=== PATIENT | female | born 1990 | race Two or more races ===

== ENCOUNTER 2019-04-09 14:06 | Emergency (ER) | payer OTHER ==
--- NOTE | 2019-04-09 14:26 | PDOC ---
Rapid Medical Evaluation Chief Complaint: Pain, Acute Time Seen by Provider: 04/09/19 14:24 Medical Evaluation: Allergies Allergy/AdvReac Type Severity Reaction Status Date / Time No Known Allergies Allergy Verified 04/09/19 14:24 04/09/19 14:24 Pt c/o: sudden onset on rt suprapubic pressure which began 1 hour, 6 weeks preg , no u/s yet, no bleeding, no injury Pt on brief exam: + suprapubic tenderness, no rlq tenderness, vss Pt ordered for: t/v preg u/s,labs and urine, tylenol pt to proceed to the ED 04/09/19 14:28 Discharge Disposition - Diagnosis Abdominal pain during in first trimester - Discharge Dispostion Disposition: HOME - Referrals Referrals: [facility] [Provider Group] [facility] [place] [Provider Group] - Patient Instructions Printed Discharge Instructions: DI for -- Discomforts and Remedies Additional Instructions: Discharge Instructions: You were seen in the emergency department for abdominal pain during . Your blood tests did not show any abnormalities, and your symptoms improved with medications. You had an ultrasound showing a normal . Home Care and Follow Up: - Minor pain in early is common and is often not a cause for concern. - You may take acetaminophen (Tylenol) 650-1000mg every 6 hours as needed. - Try using a heating pad for continued pain - You may have nausea during your . Eat small, frequent meals throughout the day. Consider keeping crackers or a small snack near your bed to eat as soon as you get up in the morning. If this does not help, a combination of vitamin B6 and doxylamine (brand name Unisom) is very effective for nausea/ vomiting in . These are available over the counter. You may take 25mg vitamin B6 daily along with of a Unisom tablet (12.5mg). Please be aware that Unisom will make you sleepy; be careful driving after taking this medication. 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 You have been given contact information for the [facility]. - You should also establish care with a primary doctor. You have been given information for the [facility]. - Seek immediate care if you have worsening symptoms, you are unable to keep down any food, you become dehydrated (stop urinating), you have any vaginal bleeding, or you have any other medical emergency. - Post Discharge Activity
[2019-04-09 14:27] VITALS: BMI 48.8
[2019-04-09] MEDS ORDERED: ACETAMINOPHEN 500 MG TABLET (FP) PO ONE (14:27)
--- NOTE | 2019-04-09 14:48 | PDOC ---
History of Present Illness - General Chief Complaint: Pain, Acute Stated Complaint: 6WK IL/ABD PAIN Time Seen by Provider: 04/09/19 14:24 - History of Present Illness Initial Comments: Florinda Girl Rebecca is a 28yo woman, currently 6wks by LMP (02/25) who presents with lower right abdominal pain that started this afternoon. She reports that she had been feeling well previously, and she has never had similar pain before. The pain was sharp/cramping in nature, non-radiating, and 8 /10 at worst. The pain has since nearly resolved. She denies any associated vaginal bleeding, vaginal discharge, dysuria, urinary frequency, change in bowel habits, nausea/vomiting, or other recent symptoms. She was afraid to take any medication but was concerned that the pain meant something was wrong with her . She has not yet established care with OB. Past History - Past Medical History Allergies/Adverse Reactions: Allergies Allergy/AdvReac Type Severity Reaction Status Date / Time No Known Allergies Allergy Verified 04/09/19 14:24 Home Medications: Ambulatory Orders NK [No Known Home Medication] 04/09/19 COPD: No Other medical history: lmp 02/27/2019 - Psycho Social/Smoking Cessation Hx Smoking History: Never smoked Review of Systems - Review of Systems Comments:: General: No fevers, no chills, no weight or appetite change, no malaise HEENT: No changes in vision, no changes in hearing, no congestion, no sore throat CV: No chest pain, no palpitations, no LE edema Pulm: No SOB, no cough, no wheezing GI: No nausea or vomiting, no change in bowel habits, no melena. RLQ pain : No frequency, no urgency, no dysuria Musc: No back pain, no joint swelling, no recent injury Skin: No rash, no lesions, no erythema Endo: No excessive thirst, no heat/cold intolerance Heme: No unusual bruising or bleeding, no swollen glands Neuro: No syncope, no numbness/tingling, no focal weakness Vasc: No claudication Psych: No recent change in mood, no SI or HI *Physical Exam - Vital Signs Last Vital Signs Temp Pulse Resp BP Pulse Ox 98.3 F 78 16 117/74 99 04/09/19 14:25 04/09/19 14:25 04/09/19 14:25 04/09/19 14:25 04/09/19 14:25 - Physical Exam General: Comfortable, no acute distress HEENT: PERRL, EOMI, MMM, voice normal, normal neck ROM Cards: RRR, no murmur appreciated Pulm: Comfortable on room air, clear to auscultation bilaterally Abd: Soft, nontender, nondistended. No rigidity or guarding. : Normal external genitalia. No bleeding noted. No adnexal tenderness or CMT. Os closed to palpation. Ext: Atraumatic. No LE edema. ROM intact. WWP Skin: Normal color, no rashes or lesions Neuro: A&Ox3, CN grossly intact, normal speech, motor/sensory grossly intact and symmetric Psych: Mood appropriate to situation ED Treatment Course - LABORATORY CBC & Chemistry Diagram: 04/09/19 15:00 04/09/19 15:00 Medical Decision Making - Medical Decision Making 04/09/19 14:47 Florinda Girl Rebecca is a 28yo woman, currently 6wks by LMP (02/25) who presents with 8/10, cramping, non-radiating lower right abdominal pain that started this afternoon. The pain has since resolved, and she denies any associated vaginal bleeding or discharge, urinary symptoms, change in bowel habits, or other recent symptoms. - TVUS already completed. Shows IUP measuring 7w1d, FHR 150. - No vaginal bleeding or discharge reported. Os closed on exam. No concerns at this time for miscarriage - CBC, CMP, UA, UCx, bHCG, T&S ordered from [facility] - Acetaminophen 04/09/19 17:09 - Labs unremarkable - Radiology report for US additionally notes 2cm simple cyst at Rt ovary - UA negative - Pt reports that pain has resolved - Advised regarding home care, follow up, return precautions. Will give contact information for OB and for primary care. Pt states understanding of and agreement with the plan Discussed with Dr Leonora Bird PGY2 Discharge - Discharge Information Problems reviewed: Yes Clinical Impression/Diagnosis: Abdominal pain during in first trimester Disposition: HOME - Admission No - Follow up/Referral Referrals: [facility] [place] [facility] [place] [Provider Group] [facility] [Provider Group] - Patient Discharge Instructions Patient Printed Discharge Instructions: DI for -- Discomforts and Remedies Additional Instructions: Discharge Instructions: You were seen in the emergency department for abdominal pain during . Your blood tests did not show any abnormalities, and your symptoms improved with medications. You had an ultrasound showing a normal . Home Care and Follow Up: - Minor pain in early is common and is often not a cause for concern. - You may take acetaminophen (Tylenol) 650-1000mg every 6 hours as needed. - Try using a heating pad for continued pain - You may have nausea during your . Eat small, frequent meals throughout the day. Consider keeping crackers or a small snack near your bed to eat as soon as you get up in the morning. If this does not help, a combination of vitamin B6 and doxylamine (brand name Unisom) is very effective for nausea/ vomiting in . These are available over the counter. You may take 25mg vitamin B6 daily along with of a Unisom tablet (12.5mg). Please be aware that Unisom will make you sleepy; be careful driving after taking this medication. - Make sure you are drinking plenty of fluids and staying well hydrated - Follow up with your tray line worker within the next 1-2 weeks. You have been given contact information for the [facility]. - You should also establish care with a primary doctor. You have been given information for the [facility] clinic. - Seek immediate care if you have worsening symptoms, you are unable to keep down any food, you become dehydrated (stop urinating), you have any vaginal bleeding, or you have any other medical emergency. - Post Discharge Activity
[2019-04-09 15:34] LABS: BASO % 0.4 % (0-2.0); EOS % 0.2 % (0-4.5); HEMATOCRIT 35.4 % (32.4-45.2); HEMOGLOBIN 11.1 GM/dL (10.7-15.3); LYMPH % 14.1 % (8-40); MCH 20.9 pg (25.7-33.7); MCHC 31.2 g/dl (32.0-36.0); MEAN CELL VOLUME 66.8 fl (80-96); MONO % 8.4 % (3.8-10.2); NEUT % 76.9 % (42.8-82.8); PLATELET COUNT 337 K/MM3 (134-434); RDW 15.3 % (11.6-15.6); WHITE BLOOD COUNT 12.2 K/mm3 (4.0-10.0)
[2019-04-09] MEDS ORDERED: ACETAMINOPHEN 325 MG TABLET (FP) ONE (15:44)
[2019-04-09 15:59] LABS: ALBUMIN 3.7 g/dl (3.4-5.0); BLOOD UREA NITROGEN 4.7 mg/dL (7-18); CALCIUM 8.8 mg/dL (8.5-10.1); CREATININE 0.4 mg/dL (0.55-1.3); POTASSIUM 3.6 mmol/L (3.5-5.1); TOT PROT 7.6 g/dl (6.4-8.2)
[2019-04-09 16:10] LABS: BILIRUBIN,TOTAL 0.5 mg/dL (0.2-1)
[2019-04-09 16:34] LABS: ANISOCYTOSIS 1+
[2019-04-09 16:35] LABS: PLATELET ESTIMATE ADEQUATE
--- NOTE | 2019-04-09 16:38 | PDOC ---
Documentation entered by Keena Verdin SCRIBE, acting as scribe for Ahsan Lea MD. Ahsan Lea MD: This documentation has been prepared by the Velvet jordan Adrianna, SCRIBE, under my direction and personally reviewed by me in its entirety. I confirm that the documentation accurately reflects all work, treatment, procedures, and medical decision making performed by me. Attending Attestation - Resident Resident Name: Dang Bird - ED Attending Attestation I have performed the following: I have examined & evaluated the patient, The case was reviewed & discussed with the resident, I agree w/resident's findings & plan, Exceptions are as noted - HPI HPI: 04/09/19 16:22 28 F , at approx 6 weeks by LMP, presenting to ED with suprapubic cramping that began 1 hour prior to arrival. She reports constant, pressure-like pain in her R groin. No N/V. no fevers. No vaginal discharge/bleeding. Denies dysuria. Denies F/C. Pt has not had US or OB f/u yet. - Physicial Exam PE: 04/09/19 16:23 "GENERAL: Awake, alert, and fully oriented, in no acute distress. HEAD: No signs of trauma EYES: PERRLA, EOMI, sclera anicteric, conjunctiva clear ENT: Auricles normal inspection, hearing grossly normal, nares patent, oropharynx clear without exudates. Moist mucosa NECK: Nontender, no stepoffs, Normal ROM, supple, no lymphadenopathy, JVD, or masses LUNGS: Breath sounds equal, clear to auscultation bilaterally. No wheezes, and no crackles HEART: Regular rate and rhythm, normal S1 and S2, no murmurs, rubs or gallops ABDOMEN: Soft, nontender, normoactive bowel sounds. No guarding, no rebound. No masses EXTREMITIES: Normal range of motion, no edema. No clubbing or cyanosis. No cords, erythema, or tenderness NEUROLOGICAL: Cranial nerves II through XII intact. 5/5 strength and sensation in all extremities, Normal speech, normal gait, normal cerebellar function SKIN: Warm, Dry, normal turgor, no rashes or lesions noted. - Medical Decision Making 04/09/19 16:23 28 F with suprapubic cramp. Will r/o ectopic with US. Pt with benign abdomen. Low suspicion for appy/torsion. - Labs, HCG - TVUS - Tylenol 04/09/19 17:02 Labs wnl TVUS shows IUP @ 7 weeks Pt is well appearing, with normal vitals. Clinically stable for DC at this time. I discussed the physical exam findings, ancillary test results and final diagnoses with the patient. I answered all of the patient's questions. The patient was satisfied with the care received and felt comfortable with the discharge plan and treatment plan. The patient agrees to follow up with the primary care physician within 24-72 hours.
[2019-04-09 16:58] VITALS: BP 119/74; PULSE 89; TEMP 99.1
[2019-04-09 17:00] LABS: PH,URINE 5.5 (5.0-8.0); URINE APPEARANCE CLEAR; URINE BILIRUBIN NEGATIVE (NEGATIVE); URINE COLOR YELLOW; URINE GLUCOSE (UA) NEGATIVE (NEGATIVE); URINE KETONE 3+ (NEGATIVE); URINE LEUK ESTERASE NEGATIVE (NEGATIVE); URINE NITRITE NEGATIVE (NEGATIVE); URINE PROTEIN NEGATIVE (NEGATIVE); URINE UROBILINOGEN 0.2 mg/dL (0.2-1.0)
== END 2019-04-09 17:23 | disposition home or self-care (01) ==
LOC: JER 14:06
DX: O26.891 Other specified pregnancy related conditions, first trimester (principal); R10.31 Right lower quadrant pain; O34.81 Maternal care for other abnormalities of pelvic organs, first trimester; N83.291 Other ovarian cyst, right side; Z3A.01 Less than 8 weeks gestation of pregnancy
CPT/HCPCS: 36415; 76817-TC; 80053; 81003; 84702; 85025; 86850; 86900; 86901; 87086; 99282-25

== ENCOUNTER 2019-11-21 11:55 | Inpatient (IN) | payer OTHER ==
[2019-11-21] MEDS ORDERED: ELECTROLYTE-148 SOLN 500 ML IV SCH ×2 (12:50→13:50)
--- NOTE | 2019-11-21 13:37 | PD.OB.PROG ---
Past Medical History - Primary Care Physician Documenting Provider Type: Laborist - Admission Chief Complaint: contractions History Source: Patient Limitations to Obtaining History: No Limitations - Nursing Documentation Nursing Documentation Reviewed: Yes - Smoking History Smoking history: Never smoked Physical Exam - Obstetrical Constitutional: Yes: Well Nourished Eyes: Yes: WNL HENT: Yes: WNL Neck: Yes: WNL Cardiovascular: Yes: WNL Lungs: Normal air movement - Abdominal Exam/OB Number of Fetuses: Single Presentation: Vertex Contractions: Yes Regularity: Regular Intensity: Mild/Mod Monitor Mode: External Category: I Accelerations: Uniform Decelerations: None - Vaginal Exam/OB Vaginal Bleeding: No Speculum Exam: No Dilatation (cm): 4 cm Amniotic Membrane Status: Intact Nitrazine Test: Negative Presentation: Vertex/Position Station: -2 Problem List - Problems (1) 39 weeks gestation of Assessment/Plan: contractions Code(s): Z3A.39 - 39 WEEKS GESTATION OF Assessment/Plan admit
[2019-11-21 15:01] VITALS: BMI 29.2
[2019-11-21] MEDS ORDERED: PROMETHAZINE HCL 25 MG/1 ML VIAL ONE (15:05)
[2019-11-21] MEDS ORDERED: BUTORPHANOL TARTRATE 2 MG/ML VIAL ONE (15:05)
[2019-11-21 15:16] LABS: BASO % 0.2 % (0-2.0); EOS % 0.2 % (0-4.5); HEMATOCRIT 36.3 % (32.4-45.2); HEMOGLOBIN 11.3 GM/dL (10.7-15.3); LYMPH % 20.3 % (8-40); MCH 22.8 pg (25.7-33.7); MCHC 31.1 g/dl (32.0-36.0); MEAN CELL VOLUME 73.3 fl (80-96); MEAN PLT VOLUME 8.5 fl (7.5-11.1); NEUT % 70.3 % (42.8-82.8); PLATELET COUNT 238 K/MM3 (134-434); RBC 4.95 M/mm3 (3.60-5.2); RDW 14.7 % (11.6-15.6); WHITE BLOOD COUNT 11.6 K/mm3 (4.0-10.0)
[2019-11-21 15:19] LABS: INR 0.97 (0.83-1.09); PROTHROMBIN TIME (PATIENT) 11.5 SEC (9.7-13.0)
[2019-11-21 15:22] LABS: ACTIVATED PTT 30.5 SECONDS (25.2-36.5)
[2019-11-21 15:27] LABS: BLOOD UREA NITROGEN 6.6 mg/dL (7-18); CREATININE 0.5 mg/dL (0.55-1.3)
[2019-11-21 15:28] LABS: CALCIUM 8.7 mg/dL (8.5-10.1); POTASSIUM 3.9 mmol/L (3.5-5.1)
[2019-11-21] MEDS ORDERED: PROMETHAZINE HCL 25 MG/1 ML VIAL IVPB ONE (15:30)
[2019-11-21] MEDS ORDERED: BUTORPHANOL TARTRATE 2 MG/ML VIAL IVPB ONE (15:30)
[2019-11-21] MEDS: ELECTROLYTE-148 SOLN 1,000 ML IV SCH ×2 (16:01→18:05)
--- NOTE | 2019-11-21 16:30 | HP ---
Past Medical History - Primary Care Physician PCP:: Byron Martin E - Admission Chief Complaint: ctx, ?ROM History of Present Illness: First bvaby. 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: No: Alzheimer's, CVA, Dementia, Migraine, Multiple Sclerosis, Peripheral Neuropathy, Parkinson's, Seizure, Syncope, TIA, Vertigo, Other Cardiovascular: No: AFIB, Aneurysm, Aortic Insufficiency, Aortic Stenosis, CAD, CHF, Deep Vein Thrombosis, HTN, Hyperlipdemia, IL, Mitral Insufficiency, Mitral Stenosis, Murmur, Pulmonary Hypertension, Other Pulmonary: No: Asthma, Bronchitis, Cancer, COPD, O2 Dependent, Pneumonia, Previously Intubated, Pulmonary Embolus, Pulmonary Fibrosis, Sleep Apnea, Other Gastrointestinal: No: Ascites, Cancer, Constipation, Crohn's Disease, Diverticulitis, Diverticulosis, Esophageal Varices, Gastritis, GERD, GI Bleed, Hemorrhoids, Hiatal Hernia, Inflamatory Bowel Disease, Irritable Bowel Disease, Pancreatitis, Peptic Ulcer Disease, Ulcerative Colitis, Other Hepatobiliary: No: Cirrhosis, Cholelithiasis, Cholecystitis, Choledocholithiasis, Hepatitis A, Hepatitis B, Hepatitis C, Other Renal/: No: Renal Failure, Renal Inusuff, BPH, Cancer, Hematuria, Hemodialysis, Neurogenic Bladder, Renal Calculi, UTI, Other Reproductive: No: Ectopic , Endometriosis, Fibroids, PID, Polycystic Ovary Syndrome, Postmenopausal, Other ...: 1 ...Para: 0 ...LMP: 02/25/19 ... Weeks Gestation by Dates: 39.3 ...EDC by Sono: 11/25/19 Heme/Onc: No: Anemia, B12 Deficiency, Bleeding Disorder, Cancer, Current Chemotherapy, Current Radiation Therapy, Hemochromatosis, Hypercoaguable State, Myeloproliferative Synd, Sickle Cell Disease, Sickle Cell Trait, Thrombocytopenia, Other Infectious Disease: No: AIDS, C-Diff, Herpes Zoster, HIV, MRSA, STD's, Tuberculosis, VREF, Other Psych: No: Addictions, Anxiety, Bipolar, Depression, Panic, Psychosis, Schizophrenia, Other Musculoskeletal: No: Bursitis, Chronic low back pain, Hemiparesis, Hemiplegia, Osteoarthritis, Paraplegia, Other Rheumatology: No: Fibromyalgia, Gout, Lupus, Rheumatoid Arthritis, Sarcoidosis, Vasculitis, Other ENT: No: Allergic Rhinitis, Sinusitis, Other Endocrine: No: Brendan's Disease, [place]'s Disease, Diabetes Insipidus, Diab etes Mellitus, Hyperparathyroidism, Hyperthyroidism, Hypothyroidism, Osteopenia, SIADH, Other Dermatology: No: Basal Cell, Cellulitis, Eczema, Melanoma, Psoriasis, Squamous Cell, Other - Past Surgical History Past Surgical History: No: None, AAA Repair, AICD, Amputation, Appendectomy, Arthrosocopy, AV Fistula/Graft, Bariatric Surgery, Breast Biopsy, Bypass, CABG, Carotid Endarterectomy, Cataract Removal, Cholecystectomy, Colectomy, Colonoscopy, Colostomy, Craniotomy, , Cystectomy, Hernia Repair, Hysterectomy, Ileal Conduit, Ileosotomy, Joint Replacement, Kidney Transplant, Laminectomy, Liver Transplant, Mastectomy, Nephrectomy, Oopherectomy, Orchiectomy, Permanent Pacemaker, Prostatectomy, Splenectomy, Stent, Thoracot cedrick, TURP, Tonsillectomy, Tubal Ligation, Upper Endoscopy, Valve Replacement, Vasectomy, Vein Stripping/Ligation Hx Myomectomy: No Hx Transabdominal Cerclage: No - Advance Directives Advance Directives: No: Living Will, Health Care Proxy, DNR, Organ Donor, Tissue Donor, MOLST - Smoking History Smoking history: Never smoked Have you smoked in the past 12 months: No - Alcohol/Substance Use Hx Alcohol Use: No Home Medications - Allergies Allergies/Adverse Reactions: Allergies Allergy/AdvReac Type Severity Reaction Status Date / Time No Known Allergies Allergy Verified 11/21/19 13:53 - Home Medications Home Medications: Ambulatory Orders Mv-Mn/Iron/FA/Herbal/Digestive [ One Tablet] 1 tab PO DAILY 11/21/19 Family Medical History Family History: Unremarkable Review of Systems - Review of Systems Constitutional: reports: No Symptoms Eyes: reports: No Symptoms HENT: reports: No Symptoms Neck: reports: No Symptoms Cardiovascular: reports: No Symptoms Respiratory: reports: No Symptoms Gastrointestinal: reports: No Symptoms Genitourinary: reports: No Symptoms Breasts: reports: No Symptoms Reported Musculoskeletal: reports: No Symptoms Integumentary: reports: No Symptoms Neurological: reports: No Symptoms Endocrine: reports: No Symptoms Hematology/Lymphatic: reports: No Symptoms Psychiatric: reports: No Symptoms Physical Exam - Maternity Vital Signs: Vital Signs Temperature 98.5 F 11/21/19 14:50 Pulse Rate 98 H 11/21/19 16:02 Respiratory Rate 20 11/21/19 16:02 Blood Pressure 132/88 11/21/19 16:02 O2 Sat by Pulse Oximetry (%) Constitutional: Yes: Well Nourished, No Distress, Calm Eyes: Yes: WNL, Conjunctiva Clear, EOM Intact HENT: Yes: WNL, Atraumatic, Normocephalic Neck: Yes: WNL, Supple, Trachea Midline Cardiovascular: Yes: WNL, Regular Rate and Rhythm Breast(s): Yes: WNL - Abdominal Exam/OB Fundal Height: 40 Regularity: Regular Category: I Accelerations: Uniform - Vaginal Exam/OB Vaginal Bleeding: No - Physical Exam Musculoskeletal: Yes: WNL Extremities: Yes: WNL Integumentary: Yes: WNL ...Motor Strength: WNL Psychiatric: Yes: WNL - Labs Lab Results: CBC, BMP 11/21/19 14:57 11/21/19 14:57 Problem List - Problems (1) Normal labor Code(s): O80 - ENCOUNTER FOR FULL-TERM UNCOMPLICATED DELIVERY; Z37.9 - OUTCOME OF DELIVERY, UNSPECIFIED (2) 39 weeks gestation of Code(s): Z3A.39 - 39 WEEKS GESTATION OF Assessment/Plan Admitted w contractions, in pain. FH cat1. Stadol/Phenergan
--- NOTE | 2019-11-21 16:34 | PN ---
Progress Note, Labor Vaginal Exam #2 Labor Exam Date: 11/21/19 Labor Exam Time: 16:20 Heart Rate (range): 140 Dilatation: 6 Effacement (%): 90 Amniotic Membrane Status: Intact Presentation: Vertex/Position Station: -2 Remarks: AROM - bloody AF (?). Observe.
[2019-11-21] MEDS ORDERED: PCA PUMP NR ONE ×2 (16:38→20:27)
[2019-11-21] MEDS ORDERED: FENTANYL/BUPIVACAINE/NS/PF - PCEA - 50 ML DISP.SYRIN EP ONE (16:39)
[2019-11-21] MEDS ORDERED: BUPIVACAINE HCL/PF 0.25% (2.5MG/ML) 10 ML VIAL ONE (16:43)
[2019-11-21] MEDS: FENTANYL/BUPIVACAINE/NS/PF - PCEA - 50 ML DISP.SYRIN EP SCH (16:55)
[2019-11-21] MEDS ORDERED: NALOXONE HCL 0.4 MG/ML VIAL IVPUSH PRN (17:08)
[2019-11-21] MEDS ORDERED: ONDANSETRON 4 MG/2 ML VIAL IVPUSH PRN ×2 (17:20→20:36)
[2019-11-21] MEDS ORDERED: ACETAMINOPHEN 325 MG TABLET (FP) PO PRN ×2 (17:20→20:36)
[2019-11-21] MEDS ORDERED: OXYTOCIN 30 UNITS in 0.9% NS 30 UNIT/500 ML INFUS.BAG IVPB SCH (17:45)
[2019-11-21] MEDS ORDERED: OXYTOCIN 30 UNITS in 0.9% NS 30 UNIT/500 ML INFUS.BAG IVPB ONE (17:59)
[2019-11-21] MEDS ORDERED: LIDO 2%/EPI 1:200000 PRESRVFRE (20 ML SDVIAL) ONE (20:25)
[2019-11-21] MEDS ORDERED: OXYTOCIN 20 UNITS in 0.9% NS 20 UNIT/1,000 ML INFUS.BAG IV ONE (20:26)
[2019-11-21] MEDS ORDERED: ceFAZolin SODIUM 1 GM VIAL ONE (20:29)
[2019-11-21] MEDS ORDERED: KETOROLAC TROMETHAMINE 30 MG/1 ML VIAL ONE (20:29)
[2019-11-21] MEDS ORDERED: IBUPROFEN 600 MG TABLET (FP) PO PRN (20:36)
--- NOTE | 2019-11-21 20:43 | PN ---
Progress Note, Labor Vaginal Exam #4 Labor Exam Date: 11/21/19 Labor Exam Time: 20:00 Dilatation: 6-7 Effacement (%): 90 Station: -2 Remarks: Unengaged vx, Good ctx. Poss. small abruptio. No progress. Pl: delivery by c/section
[2019-11-21] MEDS ORDERED: SENNOSIDES/DOCUSATE COMBO (SENNA PLUS) TABLET (UD) PO PRN (21:05)
[2019-11-21] MEDS ORDERED: ONDANSETRON 4 MG/2 ML VIAL IVPB PRN (21:05)
[2019-11-21] MEDS ORDERED: IBUPROFEN 800 MG/8 ML IJ IVPB PRN (21:05)
[2019-11-21] MEDS ORDERED: ACETAMINOPHEN 1000 MG/100 ML VIAL (NON FORMULARY) IVPB PRN (21:05)
--- NOTE | 2019-11-21 21:08 | PN ---
Delivery - Delivery Section: Primary, Low Flap Transverse Type of Anesthesia: Epidural EBL (cc): 650 Delivery, Single - Stages of Labor Date of Delivery: 11/21/19 - Condition of Infant Mailroom Associate/Licensed Psychologist Manager Present: Yes Gender: Female - 1 Minute Total Score: 9 5 Minutes Total Score: 9 - [facility] Feeding Plan Initial Plan: Exclusive throughout hospitalization Remarks - Remarks Remarks: Primary c/s. No complications.
[2019-11-21] MEDS ORDERED: OXYTOCIN 20 UNITS in 0.9% NS 20 UNIT/1,000 ML INFUS.BAG IV SCH (21:15)
--- NOTE | 2019-11-22 09:30 | OP ---
DATE OF OPERATION: 11/21/2019 PREOPERATIVE DIAGNOSES: 1. Intrauterine at term. 2. Failure to progress. POSTOPERATIVE DIAGNOSES: 1. Intrauterine at term. 2. Failure to progress. OPERATION: Low segment transverse primary section. ANESTHESIOLOGIST: Darrel Deras MD ANESTHESIA: Epidural. SURGEON: Byron Mcgregor MD BRICK LOADER: MATT Norton PROCDURE & FINDINGS: Under excellent epidural block, patient was placed in dorsal supine position with left lateral tilt, prepped and draped in the normal fashion. The abdomen was entered through Pfannenstiel incision which was carried through the subcutaneous tissue and fascia transversely. The recti muscles were dissected off the fascia, in the midline and peritoneum was entered carefully in the upper part of the incision and extended vertically. Term uterus with normal adnexa was noted. Lower uterine segment was distended, stretched and head was clearly above the pelvis. Caput was noted on the baby's head. Bladder flap was incised, peeled off the lower uterine segment, and hysterotomy was placed transversely and extended laterally with bandage scissors. Clear amniotic fluid was noted. Female infant was delivered, cried, and breathing spontaneously. Cord was divided with some delay and baby was handed over to the transportation services representative, Dr. Orlando. 's were given 9 and 9. Placenta was removed from the posterior fundal position and uterine cavity was cleaned. Hysterotomy was closed with 1 layer of Biosyn 0 interlocking suture. Additional mattress suture was placed in the middle to control a little area of oozing. Uterus was placed anatomically in the pelvis. Pelvis was lavaged. Count was reported as correct. Abdomen was closed in layers with continuous running Biosyn 2-0 peritoneum, continuous running Vicryl 1 fascia. Subcutaneous tissue was approximated with interrupted 2-0 Biosyn sutures and skin was closed with 4-0 V-Loc running suture. Steri-Strips were applied. Dressing was placed on the incision and held with a binder. Patient withstood the surgery very well. Blood was 650 mL. Patient was transferred to recovery room comfortable and stable. BYRON MCGREGOR MD [id number]
--- NOTE | 2019-11-22 09:37 | PN ---
Progress Note (short form) - Note Progress Note: VSS. Feels well. Passing gas. PE OK. Abd. soft. Incision clean and dry. Steri strips. Uterus firm, well contracted. Lochia WNL. No cva, extrem. T. Imp.: good recovery. Problem List - Problems (1) Normal labor Code(s): O80 - ENCOUNTER FOR FULL-TERM UNCOMPLICATED DELIVERY; Z37.9 - OUTCOME OF DELIVERY, UNSPECIFIED (2) 39 weeks gestation of Code(s): Z3A.39 - 39 WEEKS GESTATION OF
[2019-11-22] MEDS: SIMETHICONE 80 MG TAB.CHEW (FP) PO PRN ×2 (12:45→18:26)
[2019-11-22] MEDS: ACETAMINOPHEN 325 MG TABLET (FP) PO PRN ×2 (12:46→18:26)
[2019-11-22] MEDS: IBUPROFEN 600 MG TABLET (FP) PO PRN ×2 (12:46→18:26)
--- NOTE | 2019-11-22 14:09 | PN ---
Progress Note (short form) - Note Progress Note: 28F s/p C/S under duramorph spinal. No new c/o. Vital Signs Temp 99.1 F 11/22/19 10:00 Pulse 105 H 11/22/19 10:00 Resp 18 11/22/19 13:00 BP 126/74 11/22/19 10:00 Pulse Ox 98 11/21/19 19:45 Intake & Output 11/21/19 11/22/19 11/22/19 23:59 11:59 23:59 Intake Total 1100 1200 750 Output Total 350 300 400 Balance 750 900 350 Weight 150 lb Intake: IV 1000 1200 750 NORMAL SALINE+20 UNITS 1200 750 OXYTOCIN - 20 unit In 1, 000 ml @ 125 mls/hr IV ASDIR DAYANNA Rx#:[id number] Plasma-Lyte 148 - 1,000 1000 ml @ 125 mls/hr IV ASDIR DAYANNA Rx#:[id number] IVPB 100 Output: Urine 350 300 400 Bagley 400 Void 350 300 Other: Voiding Method Indwelling Catheter Indwelling Catheter # Unmeasured Voids Void 1 Bowel Movement No Height 5 ft Body Mass Index (BMI) 29.2 Weight 7 lb 3 oz Length 17.5 in CBC, BMP 11/21/19 14:57 - No anesthesia complications
[2019-11-22 15:01] LABS: BASO % 0.3 % (0-2.0); EOS % 0.1 % (0-4.5); HEMATOCRIT 26.4 % (32.4-45.2); HEMOGLOBIN 8.1 GM/dL (10.7-15.3); LYMPH % 10.8 % (8-40); MCH 22.3 pg (25.7-33.7); MCHC 30.7 g/dl (32.0-36.0); MEAN CELL VOLUME 72.8 fl (80-96); MEAN PLT VOLUME 8.4 fl (7.5-11.1); MONO % 9.4 % (3.8-10.2); NEUT % 79.4 % (42.8-82.8); PLATELET COUNT 209 K/MM3 (134-434); RBC 3.62 M/mm3 (3.60-5.2); RDW 14.7 % (11.6-15.6); WHITE BLOOD COUNT 16.3 K/mm3 (4.0-10.0)
[2019-11-22] MEDS ORDERED: BISACODYL 10 MG SUPP.RECT RC PRN (21:05)
[2019-11-23] MEDS: IBUPROFEN 600 MG TABLET (FP) PO PRN ×3 (04:29→16:58)
[2019-11-23] MEDS: ACETAMINOPHEN 325 MG TABLET (FP) PO PRN ×3 (04:30→16:58)
[2019-11-23] MEDS: FENTANYL/BUPIVACAINE/NS/PF - PCEA - 50 ML DISP.SYRIN EP SCH (07:39)
--- NOTE | 2019-11-23 08:14 | PN ---
Progress Note (short form) - Note Progress Note: VSS. POD # 2. SERNA is better. OOB, eats, flatus pos. Discharge tomorrow. Problem List - Problems (1) Normal labor Code(s): O80 - ENCOUNTER FOR FULL-TERM UNCOMPLICATED DELIVERY; Z37.9 - OUTCOME OF DELIVERY, UNSPECIFIED (2) 39 weeks gestation of Code(s): Z3A.39 - 39 WEEKS GESTATION OF
[2019-11-23] MEDS: SIMETHICONE 80 MG TAB.CHEW (FP) PO PRN ×2 (10:40→16:58)
[2019-11-23 11:31] LABS: POC NITRAZINE NEG
[2019-11-23] MEDS: oxyCODONE HCL 5 MG TABLET PO PRN (18:20)
[2019-11-24] MEDS: ACETAMINOPHEN 325 MG TABLET (FP) PO PRN ×2 (02:35→09:14)
[2019-11-24] MEDS: SIMETHICONE 80 MG TAB.CHEW (FP) PO PRN ×3 (02:35→13:20)
[2019-11-24] MEDS: oxyCODONE HCL 5 MG TABLET PO PRN ×3 (02:36→13:20)
[2019-11-24 10:05] VITALS: BP 123/85; PULSE 114; TEMP 98
--- NOTE | 2019-11-24 12:26 | PN ---
Progress Note (short form) - Note Progress Note: POD # 3 VSS. Feels well. PE OK. Incision is healing, clean and dry. No CVA, extrem. T. Instructed. Discharge. Problem List - Problems (1) Normal labor Code(s): O80 - ENCOUNTER FOR FULL-TERM UNCOMPLICATED DELIVERY; Z37.9 - OUTCOME OF DELIVERY, UNSPECIFIED (2) 39 weeks gestation of Code(s): Z3A.39 - 39 WEEKS GESTATION OF
--- NOTE | 2019-11-24 12:30 | DS ---
Physical Exam-[employer] Vital Signs: Vital Signs Temperature 98 F 11/24/19 09:00 Pulse Rate 114 H 11/24/19 09:00 Respiratory Rate 18 11/24/19 09:00 Blood Pressure 123/85 11/24/19 09:00 O2 Sat by Pulse Oximetry (%) 99 11/23/19 09:00 Constitutional: Yes: Well Nourished, No Distress, Calm Eyes: Yes: WNL, Conjunctiva Clear, EOM Intact HENT: Yes: WNL, Atraumatic, Normocephalic Neck: Yes: WNL, Supple, Trachea Midline Cardiovascular: Yes: WNL, Regular Rate and Rhythm Respiratory: Yes: WNL, Regular, CTA Bilaterally Gastrointestinal: Yes: WNL ...Rectal Exam: Yes: WNL Renal/: Yes: WNL External Genitalia: Yes: Normal Internal Exam Deferred: Yes Breast(s): Yes: WNL Musculoskeletal: Yes: WNL Extremities: Yes: WNL Integumentary: Yes: WNL Neurological: Yes: WNL, Alert, Oriented ...Motor Strength: WNL Psychiatric: Yes: WNL, Alert, Oriented Labs: CBC, BMP 11/22/19 12:30 11/21/19 14:57 Delivery - Delivery Section: Primary, Low Flap Transverse Type of Anesthesia: Epidural Episiotomy/Laceration: None EBL (cc): 650 Delivery, Single - Stages of Labor Date 1st Stage Initiatied: 11/21/19 Time 1st Stage Initiated: 11:00 Date of Delivery: 11/21/19 Time of Delivery: 20:47 Time Placenta Delivered: 20:48 - Condition of 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 Anemia. Stable. Discharge Summary Problems reviewed: Yes Reason For Visit: LABOR Current Active Problems 39 weeks gestation of (Acute) Normal labor (Acute) Hospital Course: uneventful Condition: Good - Instructions Diet, Activity, Other Instructions: Physical activity Resume your normal everyday activity as tolerated no heavy lifting or exercise until seen by your surgeon. You may walk unlimited suly of and climb stairs. You may resume driving the car when you feel safe and comfortable behind the wheel. No sexual activity as instructed. Wound care If you have a bandage, leave it on, and keep dry for 48-72 hours. After that time discard the outer bandage. If they are tapes on the skin under the out of bandage leave them in place. They will peel off in the next 7 to 10 days. Do Not Peel them off. You may shower the day after surgery. If there are tapes present on the skin, you may shower over them. Diet There are no dietary restrictions. Eat healthy, high-fiber foods. Drink 6 to 8 glasses of liquid each day. This will assist in keeping your bowels are regular. Pain management You may take Tylenol or acetaminophen or Ibuprofen (for example, Motrin, Advil etc.) from my pain prescription medication is ordered should be taken as prescribed for moderate to severe pain. Call MD for any of the following: Severe pain not relieved by medication Fever of 101 or higher Excessive bleeding or drainage on dressing Inability to urinate Disposition: HOME - Home Medications Comprehensive Discharge Medication List: Ambulatory Orders Mv-Mn/Iron/FA/Herbal/Digestive [ One Tablet] 1 tab PO DAILY 11/21/19
[2019-11-24] MEDS: IBUPROFEN 600 MG TABLET (FP) PO PRN (13:20)
--- NOTE | 2019-11-26 14:26 | PATH ---
Surgical Pathology Report Patient Name: KRISTINE BARCLAY [facility]. Rec. 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 Electronically Signed Natacha Mcmahan M.D. Gross Description The specimen is received fresh labeled placenta and is a 473 gram, 17.0 x 15.5 x 3.0 cm. placenta with attached membranes and umbilical cord. The attached membranes are matias, translucent with focal opacities and insert marginally. The umbilical cord measures 22.5 cm. in length and averages 0.9 cm. in diameter. The cord inserts eccentrically, 2.5 cm. to the nearest margin. No true knots or strictures are identified. Cut surface of the umbilical cord reveals 3 vessels. The surface is grubbs-blue with minimal fibrin deposition and appropriate caliber vessels. The maternal surface is red-brown with focal defects. Sectioning reveals red-brown, spongy parenchyma. No lesions are identified. Icebox Worker sections are submitted in three cassettes as follows: 1- membrane rolls and umbilical cord; 2-3- full thickness sections of placenta. /11/25/2019 saudi11/25/2019
== END 2019-11-24 14:40 | disposition home or self-care (01) | DRG 540 ==
LOC: JDEL 11:55 → JLDR 13:00 → J3W 23:10
PROVIDERS: ADMIT Specialist; ATTEND Specialist
PROC: 10D00Z1 Extraction of Products of Conception, Low, Open Approach (ICD-10-PCS; principal; 2019-11-21)
DX: O32.4XX0 Maternal care for high head at term, not applicable or unspecified (principal); Z3A.39 39 weeks gestation of pregnancy; Z37.0 Single live birth
CPT/HCPCS: 36415; 80048; 83986-QW; 85025; 85610; 85730; 86780; 86850; 86900; 86901; 88307-TC; J0131